=== PATIENT | female | born 1970 | race Caucasian/White ===

== ENCOUNTER 2020-08-26 10:16 | Emergency (ER) | payer OTHER | END 2020-08-26 13:42 | disposition home or self-care (01) | LOC: JVIRT 10:16 | DX: Z03.818 Encounter for observation for suspected exposure to other biological agents ruled out (principal) | CPT/HCPCS: C9803; G2012-GT; Q3014-GT; U0003 ==

== ENCOUNTER 2020-08-30 09:48 | Emergency (ER) | payer OTHER | END 2020-08-30 10:25 | disposition home or self-care (01) | LOC: JVIRT 09:48 | DX: Z20.828 Contact with and (suspected) exposure to other viral communicable diseases (principal) | CPT/HCPCS: C9803; G2012-GT; Q3014-GT; U0003 ==

== ENCOUNTER 2020-09-29 09:30 | Emergency (ER) | payer OTHER | END 2020-09-29 09:44 | disposition home or self-care (01) | LOC: JVIRT 09:30 | DX: Z20.822 Contact with and (suspected) exposure to COVID-19 (principal) | CPT/HCPCS: C9803; G2012-GT; U0003 ==

== ENCOUNTER 2020-11-07 10:10 | Emergency (ER) | payer OTHER | END 2020-11-07 11:27 | disposition home or self-care (01) | LOC: JVIRT 10:10 | DX: Z11.52 Encounter for screening for COVID-19 (principal) | CPT/HCPCS: C9803; G2251-GT; Q3014-GT; U0003 ==